=== PATIENT | female | born 1990 | race Caucasian/White ===

== ENCOUNTER 2018-05-11 18:46 | Emergency (ER) | payer BC ==
[~2018-05-11] VITALS: Ht 160 cm; Wt 63.6 kg
--- NOTE | 2018-05-11 19:02 | NUR ---
Dr. Cloud notified of patient's arrival as he had been contacted by the provider who sent her here. Charge notified who contacted MRI to see if they can do the scan before they go home.
[2018-05-11] MEDS ORDERED: traMADol 50MG tablet PO ONE (20:25)
[2018-05-11] MEDS ORDERED: diazepam 5mg tablet PO ONE (20:25)
[2018-05-11] MEDS ORDERED: LIDOcaine 1% 30ml preserv. free vial IJ ONE (20:30)
[2018-05-11] MEDS ORDERED: TRAM50TA2 PO (20:31)
[2018-05-11] MEDS ORDERED: DIAZ5TAB PO (20:31)
[2018-05-11 21:08] VITALS: BP 121/71
== END 2018-05-11 21:10 | disposition home or self-care (01) ==
LOC: ER 18:46
DX: S16.1XXA Strain of muscle, fascia and tendon at neck level, initial encounter (principal); Z91.040 Latex allergy status; Z88.1 Allergy status to other antibiotic agents; Z88.5 Allergy status to narcotic agent; Z88.6 Allergy status to analgesic agent; Z88.8 Allergy status to other drugs, medicaments and biological substances; Z79.899 Other long term (current) drug therapy; V80.010A Animal-rider injured by fall from or being thrown from horse in noncollision accident, initial encounter; Y93.89 Activity, other specified; Y92.89 Other specified places as the place of occurrence of the external cause; Y99.8 Other external cause status
CPT/HCPCS: 20552; 72141; 99284; J3490